=== PATIENT | female | born 1940 | race Native Hawaiian/Other Pacific Islander ===

== ENCOUNTER 2016-09-12 02:04 | Inpatient (IN) | payer OTHER ==
[~2016-09-12] VITALS: Ht 154.9 cm; Wt 87.6 kg
[2016-09-12 02:15] VITALS: BP 164/79; TEMP 98.9
[2016-09-12 02:32] LABS: PLATELET COUNT 292 K/uL (152-353)
[2016-09-12 02:45] LABS: POTASSIUM 3.3 mmol/L (3.6-5.2); SODIUM 126 mmol/L (136-145)
[2016-09-12] MEDS ORDERED: LISI10TA11 PO (03:25)
[2016-09-12] MEDS ORDERED: LEXAPRO10 MG PO (03:26)
[2016-09-12] MEDS ORDERED: MONT10TA PO (03:26)
[2016-09-12] MEDS ORDERED: NEXIUM40 M1 PO (03:27)
[2016-09-12] MEDS ORDERED: ALPR0.2566 PO (03:27)
[2016-09-12 04:28] VITALS: BP 159/78; TEMP 98.9; Ht 154.9 cm; Wt 87.6 kg
--- NOTE | 2016-09-12 05:33 | NUR ---
09/12/16 0400: RECEIVED PT FROM ER BY W/C TO ROOM 1107. PT ACCOMPANIED BY FAMILY MEMBER. NO ACTIVE VOMITING OR DIARRHEA AT THIS TIME.
[2016-09-12 08:00] VITALS: BP 102/62; TEMP 99
[2016-09-12 12:07] VITALS: BP 106/60; TEMP 98.6
[2016-09-12 16:00] VITALS: BP 120/62; TEMP 99.3
[2016-09-12 20:00] VITALS: BP 137/61; TEMP 98.5
[2016-09-13 00:10] VITALS: BP 146/70; TEMP 98.3
[2016-09-13 04:00] VITALS: BP 146/66; TEMP 98.1
[2016-09-13 05:13] LABS: PLATELET COUNT 266 K/uL (152-353)
--- NOTE | 2016-09-13 05:23 | NUR ---
09/13/16 0520NO N/V NOTED DURING THE NIGHT.CC
[2016-09-13 05:31] LABS: POTASSIUM 3.8 mmol/L (3.6-5.2); SODIUM 136 mmol/L (136-145)
[2016-09-13 08:00] VITALS: BP 144/71; TEMP 97.8
[2016-09-13 12:00] VITALS: BP 127/57; TEMP 97.8
[2016-09-13 16:00] VITALS: BP 176/83; TEMP 98
[2016-09-13 20:00] VITALS: BP 141/67; TEMP 98.7
[2016-09-14] VITALS: BP 120/58; TEMP 98.9
[2016-09-14 04:00] VITALS: BP 149/70; TEMP 99
[2016-09-14 05:29] LABS: PLATELET COUNT 309 K/uL (152-353)
[2016-09-14 05:42] LABS: POTASSIUM 3.4 mmol/L (3.6-5.2); SODIUM 137 mmol/L (136-145)
[2016-09-14 08:00] VITALS: BP 135/60; TEMP 98.7
[2016-09-14 12:00] VITALS: BP 149/86; TEMP 98.2
--- NOTE | 2016-09-14 14:10 | NUR ---
F/U APT WITH DR. JIN MADE FOR September AT 0900. IV D/C'D. D/C INSTURCTIONS GIVEN. PRESCRIPTION GIVEN. PT VERBALIZES UNDERSTANDING. PT VOICES NO CONCERNS OR QUESTIONS. PT WHEELED OUT TO CAR WITH FAMILY VIA W/C BY DAVIN STRONG PCT.
== END 2016-09-14 13:50 | disposition home or self-care (01) | DRG 392 ==
LOC: ED 02:04 → MED/SURG 03:23
PROVIDERS: Emergency Medicine; ADMIT Specialist
DX: A08.39 Other viral enteritis (principal); E88.09 Other disorders of plasma-protein metabolism, not elsewhere classified; I10 Essential (primary) hypertension; M81.8 Other osteoporosis without current pathological fracture
CPT/HCPCS: 36415; 80053; 81000; 82150; 82272; 83690; 83735; 84999; 85027; 87015; 87045; 87205; 87324; 87328; 87329; 87449; 87899; 96360; 96361; 96367; 96374; 96375; 99284; J1885; J2405

== ENCOUNTER 2017-01-20 13:26 | Emergency (ER) | payer OTHER ==
[~2017-01-20] VITALS: Ht 154.9 cm; Wt 83.9 kg
[~2017-01-20 13:26] MED LIST: ALPR0.2566 PO; LEXAPRO10 MG PO; LISI10TA11 PO; MONT10TA PO; NEXIUM40 M1 PO
[2017-01-20 13:33] VITALS: BP 151/82; TEMP 97.6
== END 2017-01-20 15:10 | disposition home or self-care (01) ==
LOC: ED 13:26
DX: S20.211A Contusion of right front wall of thorax, initial encounter (principal); S50.811A Abrasion of right forearm, initial encounter; W17.2XXA Fall into hole, initial encounter; Y92.89 Other specified places as the place of occurrence of the external cause
CPT/HCPCS: 99283

== ENCOUNTER 2017-02-26 22:31 | Emergency (ER) | payer OTHER ==
[~2017-02-26] VITALS: Ht 154.9 cm; Wt 86.2 kg
[2017-02-27 00:45] VITALS: BP 144/66; TEMP 98.2
== END 2017-02-27 00:45 | disposition home or self-care (01) ==
LOC: ED 22:31
PROC: 2W3QX1Z Immobilization of Right Lower Leg using Splint (ICD-10-PCS; principal; 2017-02-26)
DX: S82.831A Other fracture of upper and lower end of right fibula, initial encounter for closed fracture (principal); S93.491A Sprain of other ligament of right ankle, initial encounter; W01.0XXA Fall on same level from slipping, tripping and stumbling without subsequent striking against object, initial encounter; Y92.410 Unspecified street and highway as the place of occurrence of the external cause
CPT/HCPCS: 99283

== ENCOUNTER 2021-03-18 06:41 | Emergency (ER) | payer OTHER ==
[~2021-03-18] VITALS: Ht 165.1 cm; Wt 77.1 kg
[2021-03-18 07:08] LABS: POTASSIUM 3.4 mmol/L (3.6-5.2)
[2021-03-18 07:09] LABS: PLATELET COUNT 380 K/uL (152-353)
[2021-03-18 07:26] LABS: PARTIAL THROMBOPLASTIN TIME 28.1 SECONDS (24.5-33.6)
[2021-03-18 11:58] VITALS: BP 164/81; TEMP 98.6
== END 2021-03-18 12:28 | disposition still patient (30) ==
LOC: ED 06:41
PROVIDERS: Hospitalist
DX: M25.552 Pain in left hip (principal); M54.59 Other low back pain; S72.012A Unspecified intracapsular fracture of left femur, initial encounter for closed fracture; M48.56XA Collapsed vertebra, not elsewhere classified, lumbar region, initial encounter for fracture; I67.89 Other cerebrovascular disease; K44.9 Diaphragmatic hernia without obstruction or gangrene; Z11.52 Encounter for screening for COVID-19; W01.0XXA Fall on same level from slipping, tripping and stumbling without subsequent striking against object, initial encounter; Y92.098 Other place in other non-institutional residence as the place of occurrence of the external cause
CPT/HCPCS: 80048; 85027; 85610; 85730; 87635; 96360; 96361; 96375; 96376; 99284; J1885; J2270; J2405; U0003

== ENCOUNTER 2021-03-31 14:51 | Inpatient (IN) | payer OTHER ==
[2021-04-01 07:57] LABS: PLATELET COUNT 685 K/uL (152-353)
[2021-04-01 08:43] LABS: POTASSIUM 4.1 mmol/L (3.6-5.2)
== END 2021-04-12 09:36 | disposition still patient (30) ==
LOC: PAVB 14:51
PROVIDERS: ADMIT Family Medicine; ATTEND Family Medicine
CPT/HCPCS: 80053; 80061; 82306; 82607; 82728; 83036; 83540; 84443; 85027; 87081

== ENCOUNTER 2021-04-12 11:17 | Inpatient (IN) | payer OTHER ==
[2021-05-09 07:00] LABS: POTASSIUM 4.1 mmol/L (3.6-5.2)
[2021-05-09 07:36] LABS: PLATELET COUNT 355 K/uL (152-353)
== END 2021-05-10 09:01 | disposition still patient (30) ==
LOC: PAVB 11:17
PROVIDERS: ADMIT Family Medicine; ATTEND Family Medicine
DX: S72.045D Nondisplaced fracture of base of neck of left femur, subsequent encounter for closed fracture with routine healing (principal); M62.81 Muscle weakness (generalized); R26.81 Unsteadiness on feet; Z74.1 Need for assistance with personal care
CPT/HCPCS: 80048; 85027; G0283-GP

== ENCOUNTER 2021-04-15 17:50 | Emergency (ER) | payer OTHER ==
[~2021-04-15] VITALS: Ht 154.9 cm; Wt 75.8 kg
[2021-04-15 17:50] VITALS: TEMP 98
[2021-04-15 19:04] LABS: PLATELET COUNT 388 K/uL (152-353)
[2021-04-15 19:05] LABS: POTASSIUM 3.5 mmol/L (3.6-5.2)
[2021-04-15 19:17] LABS: PARTIAL THROMBOPLASTIN TIME 25.5 SECONDS (24.5-33.6)
[2021-04-15 19:45] VITALS: BP 132/64
== END 2021-04-15 19:45 | disposition short-term general hospital (02) ==
LOC: ED 17:50
PROVIDERS: Hospitalist
DX: T81.49XA Infection following a procedure, other surgical site, initial encounter (principal); Y83.8 Other surgical procedures as the cause of abnormal reaction of the patient, or of later complication, without mention of misadventure at the time of the procedure; Y92.89 Other specified places as the place of occurrence of the external cause; Z11.52 Encounter for screening for COVID-19; I51.7 Cardiomegaly; Z79.899 Other long term (current) drug therapy; Z51.81 Encounter for therapeutic drug level monitoring
CPT/HCPCS: 36415; 80053; 83605; 85027; 85610; 85730; 87040; 87635; 96365; 96375; 99284; J1885; J1940; J2405; J3370; U0003

== ENCOUNTER 2021-05-01 07:39 | Outpatient (CLI) | payer OTHER ==
[2021-05-01 08:12] LABS: PLATELET COUNT 315 K/uL (152-353)
[2021-05-01 08:16] LABS: POTASSIUM 3.4 mmol/L (3.6-5.2)
== END 2021-05-01 19:20 | disposition home or self-care (01) ==
LOC: LAB 07:39
PROVIDERS: ATTEND Family Medicine
DX: T81.40XD Infection following a procedure, unspecified, subsequent encounter (principal); I10 Essential (primary) hypertension
CPT/HCPCS: 80048; 85027

== ENCOUNTER 2021-05-10 15:50 | Inpatient (IN) | payer OTHER | END 2021-06-10 08:43 | disposition still patient (30) | LOC: PAVB 15:50 | PROVIDERS: ADMIT Family Medicine; ATTEND Family Medicine | CPT/HCPCS: 80048; 83735; 85027 ==

== ENCOUNTER 2021-05-16 07:58 | Outpatient (CLI) | payer OTHER ==
[2021-05-16 08:20] LABS: PLATELET COUNT 352 K/uL (152-353)
[2021-05-16 08:25] LABS: POTASSIUM 3.4 mmol/L (3.6-5.2)
== END 2021-05-16 19:06 | disposition home or self-care (01) ==
LOC: LAB 07:58
PROVIDERS: ATTEND Family Medicine
DX: T81.40XD Infection following a procedure, unspecified, subsequent encounter (principal); I10 Essential (primary) hypertension
CPT/HCPCS: 80048; 85027

== ENCOUNTER 2021-05-20 06:15 | Emergency (ER) | payer OTHER ==
[~2021-05-20] VITALS: Ht 154.9 cm; Wt 78.5 kg
[2021-05-20 06:16] VITALS: BP 171/74; TEMP 97.9
== END 2021-05-20 08:30 ==
LOC: ED 06:15
DX: S09.8XXA Other specified injuries of head, initial encounter (principal); M25.552 Pain in left hip; S70.02XA Contusion of left hip, initial encounter; S30.0XXA Contusion of lower back and pelvis, initial encounter; S00.83XA Contusion of other part of head, initial encounter; W01.198A Fall on same level from slipping, tripping and stumbling with subsequent striking against other object, initial encounter; Y92.128 Other place in nursing home as the place of occurrence of the external cause
CPT/HCPCS: 96372; 99283; J1885; J2405

== ENCOUNTER 2021-05-30 07:43 | Outpatient (CLI) | payer OTHER ==
[2021-05-30 08:04] LABS: PLATELET COUNT 360 K/uL (152-353)
[2021-05-30 08:08] LABS: POTASSIUM 3.8 mmol/L (3.6-5.2)
== END 2021-05-30 19:02 | disposition home or self-care (01) ==
LOC: LAB 07:43
PROVIDERS: ATTEND Family Medicine
DX: T81.40XD Infection following a procedure, unspecified, subsequent encounter (principal); I10 Essential (primary) hypertension
CPT/HCPCS: 80048; 85027

== ENCOUNTER 2021-06-06 06:58 | Outpatient (CLI) | payer OTHER ==
[2021-06-06 07:37] LABS: PLATELET COUNT 360 K/uL (152-353)
[2021-06-06 08:13] LABS: POTASSIUM 3.7 mmol/L (3.6-5.2)
== END 2021-06-06 18:50 | disposition home or self-care (01) ==
LOC: LAB 06:58
PROVIDERS: ATTEND Family Medicine
DX: I10 Essential (primary) hypertension (principal)
CPT/HCPCS: 80048; 85027

== ENCOUNTER 2021-06-10 10:01 | Inpatient (IN) | payer OTHER ==
[~2021-06-10] VITALS: Ht 154.9 cm; Wt 75.4 kg
[2021-06-15] MEDS ORDERED: MAGN400T4 PO (08:48)
[2021-06-16 16:08] VITALS: BP 143/70; TEMP 98.1; Ht 154.9 cm; Wt 75.4 kg
[2021-06-17] MEDS ORDERED: HYDROCHLOROT12.5 M1 PO (08:37)
[2021-06-17] MEDS ORDERED: SENOKOT S1 TAB PO (08:43)
[2021-06-17] MEDS ORDERED: TRAM50TA PO (08:44)
[2021-06-17] MEDS ORDERED: MAPAP500 MG PO (08:45)
[2021-06-17] MEDS ORDERED: OXYC5TAB53 PO (08:46)
[2021-06-17] MEDS ORDERED: ONDA4TAB3 PO (08:46)
[2021-06-17] MEDS ORDERED: VITAMIN C500 M7 PO (08:47)
[2021-06-17] MEDS ORDERED: SOD CHLORIDE1 GM PO (08:50)
[2021-06-17] MEDS ORDERED: DICYCLOMINE HYD20 MG PO (08:50)
[2021-06-17] MEDS ORDERED: ZINC220 M1 PO (08:51)
[2021-06-17] MEDS ORDERED: PANTOPRAZOLE 40MG TA PO (08:51)
[2021-06-17] MEDS ORDERED: CLARITIN10 M1 PO (08:52)
[2021-06-17] MEDS ORDERED: NASACORT A55 MCG/ACT NAS (08:53)
[2021-06-17] MEDS ORDERED: BUSP5TAB2 PO (08:53)
[2021-06-17] MEDS ORDERED: CLON1TAB18 PO (08:55)
[2021-06-17] MEDS ORDERED: CEFT2INJ IV (09:18)
[2021-06-17] MEDS ORDERED: SENNOSIDES8.6 MG PO (09:54)
== END 2021-07-07 09:24 | disposition home or self-care (01) ==
LOC: PAVB 10:01
PROVIDERS: ADMIT Family Medicine; ATTEND Family Medicine
DX: T81.40XD Infection following a procedure, unspecified, subsequent encounter (principal); S72.045D Nondisplaced fracture of base of neck of left femur, subsequent encounter for closed fracture with routine healing; M62.81 Muscle weakness (generalized); Z74.1 Need for assistance with personal care; R26.89 Other abnormalities of gait and mobility
CPT/HCPCS: 80048; 85027

== ENCOUNTER 2021-06-13 09:04 | Outpatient (CLI) | payer OTHER ==
[2021-06-13 09:13] LABS: PLATELET COUNT 368 K/uL (152-353)
[2021-06-13 09:35] LABS: POTASSIUM 3.7 mmol/L (3.6-5.2)
== END 2021-06-13 19:08 | disposition home or self-care (01) ==
LOC: LAB 09:04
PROVIDERS: ATTEND Family Medicine
DX: T81.40XD Infection following a procedure, unspecified, subsequent encounter (principal); Z79.899 Other long term (current) drug therapy
CPT/HCPCS: 80048; 85027

== ENCOUNTER 2021-06-14 07:17 | Outpatient (CLI) | payer OTHER ==
[2021-06-14 08:34] LABS: POTASSIUM 3.8 mmol/L (3.6-5.2)
== END 2021-06-14 18:56 | disposition home or self-care (01) ==
LOC: LAB 07:17
PROVIDERS: ATTEND Family Medicine
DX: E87.1 Hypo-osmolality and hyponatremia (principal)
CPT/HCPCS: 80048; 87070

== ENCOUNTER 2021-06-16 06:04 | Observation (INO) | payer OTHER ==
[~2021-06-16] VITALS: Ht 154.9 cm; Wt 78.5 kg
[~2021-06-16 06:04] MED LIST changes: +MAGN400T4 PO
[2021-06-16 06:40] LABS: PLATELET COUNT 299 K/uL (152-353)
[2021-06-16 07:02] LABS: POTASSIUM 3.6 mmol/L (3.6-5.2)
[2021-06-16 20:00] VITALS: BP 130/69; TEMP 98.6
[2021-06-16 22:08] VITALS: BP 143/70; TEMP 98; Ht 154.9 cm; Wt 78.5 kg
[2021-06-17] VITALS (7 sets, daily range): BP systolic 93–153; BP diastolic 54–77; TEMP 97.7–98.5
[2021-06-17 05:04] LABS: POTASSIUM 3.8 mmol/L (3.6-5.2)
[2021-06-17 05:36] LABS: PLATELET COUNT 305 K/uL (152-353)
[2021-06-17] MEDS ORDERED: HYDROCHLOROT12.5 M1 PO (08:37)
[2021-06-17] MEDS ORDERED: SENOKOT S1 TAB PO (08:43)
[2021-06-17] MEDS ORDERED: TRAM50TA PO (08:44)
[2021-06-17] MEDS ORDERED: MAPAP500 MG PO (08:45)
[2021-06-17] MEDS ORDERED: OXYC5TAB53 PO (08:46)
[2021-06-17] MEDS ORDERED: ONDA4TAB3 PO (08:46)
[2021-06-17] MEDS ORDERED: VITAMIN C500 M7 PO (08:47)
[2021-06-17] MEDS ORDERED: SOD CHLORIDE1 GM PO (08:50)
[2021-06-17] MEDS ORDERED: DICYCLOMINE HYD20 MG PO (08:50)
[2021-06-17] MEDS ORDERED: ZINC220 M1 PO (08:51)
[2021-06-17] MEDS ORDERED: PANTOPRAZOLE 40MG TA PO (08:51)
[2021-06-17] MEDS ORDERED: CLARITIN10 M1 PO (08:52)
[2021-06-17] MEDS ORDERED: NASACORT A55 MCG/ACT NAS (08:53)
[2021-06-17] MEDS ORDERED: BUSP5TAB2 PO (08:53)
[2021-06-17] MEDS ORDERED: CLON1TAB18 PO (08:55)
[2021-06-17] MEDS ORDERED: CEFT2INJ IV (09:18)
[2021-06-17] MEDS ORDERED: SENNOSIDES8.6 MG PO (09:54)
[2021-06-17 14:08] LABS: POTASSIUM 4.1 mmol/L (3.6-5.2)
[2021-06-18 04:21] VITALS: BP 132/59; TEMP 98
[2021-06-18 05:44] LABS: PLATELET COUNT 342 K/uL (152-353)
[2021-06-18 08:00] VITALS: BP 135/63; TEMP 97.9
[2021-06-18 12:00] VITALS: BP 142/63; TEMP 97.8
== END 2021-06-18 13:53 ==
LOC: LAB 06:04 → MED/SURG 15:45
PROVIDERS: ADMIT Family Medicine; ATTEND Family Medicine
DX: E87.1 Hypo-osmolality and hyponatremia (principal); R41.0 Disorientation, unspecified; I10 Essential (primary) hypertension; E78.5 Hyperlipidemia, unspecified; E66.8 Other obesity; M25.559 Pain in unspecified hip; R10.2 Pelvic and perineal pain
CPT/HCPCS: 36415; 80048; 80053; 82575; 83735; 83935; 84100; 84156; 84300; 85027; 87635; 96360; 96361; 99220; G0378; J3475; U0003

== ENCOUNTER 2021-06-21 07:34 | Outpatient (CLI) | payer OTHER ==
[~2021-06-21 07:34] MED LIST changes: +BUSP5TAB2 PO; +CEFT2INJ IV; +CLARITIN10 M1 PO; +CLON1TAB18 PO; +DICYCLOMINE HYD20 MG PO; +HYDROCHLOROT12.5 M1 PO; +MAPAP500 MG PO; +NASACORT A55 MCG/ACT NAS; +ONDA4TAB3 PO; +OXYC5TAB53 PO; +PANTOPRAZOLE 40MG TA PO; +SENNOSIDES8.6 MG PO; +SENOKOT S1 TAB PO; +SOD CHLORIDE1 GM PO; +TRAM50TA PO; +VITAMIN C500 M7 PO; +ZINC220 M1 PO
[2021-06-21 07:48] LABS: PLATELET COUNT 372 K/uL (152-353)
[2021-06-21 08:39] LABS: POTASSIUM 3.8 mmol/L (3.6-5.2)
== END 2021-06-21 19:38 | disposition home or self-care (01) ==
LOC: LAB 07:34
PROVIDERS: ATTEND Family Medicine
DX: E87.1 Hypo-osmolality and hyponatremia (principal)
CPT/HCPCS: 80053; 83735; 84100; 85027

== ENCOUNTER 2021-09-07 14:04 | Outpatient (CLI) | payer OTHER | END 2021-09-07 19:45 | disposition home or self-care (01) | LOC: RAD 14:04 | PROVIDERS: ATTEND Nurse Practitioner Family | DX: M54.12 Radiculopathy, cervical region (principal) ==

== ENCOUNTER 2021-09-28 09:04 | Outpatient (CLI) | payer OTHER | END 2021-09-28 19:19 | disposition home or self-care (01) | LOC: LAB 09:04 | PROVIDERS: ATTEND Nurse Practitioner Family | DX: R80.9 Proteinuria, unspecified (principal) | CPT/HCPCS: 84156 ==

== ENCOUNTER 2021-11-01 09:03 | Outpatient (CLI) | payer OTHER | END 2021-11-01 18:57 | disposition home or self-care (01) | LOC: US 09:03 | PROVIDERS: ATTEND Nurse Practitioner Family | DX: R80.8 Other proteinuria (principal) ==